=== PATIENT | female | born 1975 | race Caucasian/White ===

== ENCOUNTER 2016-10-21 10:27 | Observation (INO) ==
[2016-10-21] MEDS ORDERED: 0.9 % Sodium Chloride 1,000 ML IVC ONE (11:03)
--- NOTE | 2016-10-21 11:07 | Emergency Department Note ---
Disposition Clinical Impression: Abdominal pain Qualifiers: Abdominal location: left lower quadrant Qualified Code(s): R10.32 - Left lower quadrant pain Disposition: Admitted As Inpatient Condition: Good Referrals: NO,PCP [Non-Partnered Physician] - Forms: Work/School Release, ED Satisfaction Letter Time of Disposition: 13:56 Abdominal Pain HPI - General Chief Complaint: ED Abdominal Pain Stated Complaint: Abdominal pain Time Seen by Provider: 10/21/16 10:46 Source: patient Mode of arrival: ambulatory Limitations: no limitations Nursing Notes Reviewed: Yes Vital Signs Reviewed: Yes - History of Present Illness HPI Narrative: 40-year-old comes in complaining of left lower quadrant pain. Patient has a history of previous diverticular disease. Pt Subjective Complaint: abdominal pain Onset (ago): day(s) Consistency: constant Location: LLQ Pain Scale: 9 Quality: aching Radiation: none Migration to: no migration Improves with: nothing Worsens with: nothing - Related Data Allergies Allergy/AdvReac Type Severity Reaction Status Date / Time No Known Allergies Allergy Verified 05/26/15 12:28 Constitutional: Denies: fever, chills, weakness, weight change Eyes: Denies: eye pain, eye discharge, vision change ENT ED: Denies: ear pain, throat pain, dental pain, hearing loss, epistaxis, congestion, dysphagia Cardiovascular: Denies: chest pain, palpitations, dyspnea on exertion, edema, syncope Respiratory: Denies: cough, dyspnea, wheezes, hemoptysis, stridor Gastrointestinal: Reports: abdominal pain. Denies: nausea, vomiting, diarrhea, constipation, hematemesis, melena, hematochezia Genitourinary: Denies: dysuria, frequency, hematuria, discharge Musculoskeletal: Denies: back pain, neck pain, arthralgia, myalgia Integumentary: Denies: rash, abrasion, lesions Neurological: Denies: headache, weakness, numbness, paresthesias, confusion, abnormal gait, vertigo Psychiatric: Denies: anxiety, depression, suicidal thoughts, homicidal thoughts , auditory hallucinations, visual hallucinations Endocrine: Denies: fatigue Hematological/Lymphatic: Denies: easy bleeding, easy bruising Allergic/Immunologic: Denies: facial swelling, urticaria Abdominal Pain PMH - Past Medical History Medical history: Reports: GERD, other Psychiatric history: Reports: no psych history - Social History Smoking status: Never smoker Alcohol use: Reports: none Drug use: Reports: none Physical Exam - General Limitations: no limitations General appearance: alert, in no apparent distress - Head Head exam: atraumatic, normocephalic, normal inspection - Eye Eye exam: Present: normal appearance, PERRL, EOMI - ENT ENT exam: normal exam, normal oropharynx, mucous membranes moist - Neck Neck exam: Present: normal inspection, full ROM, trachea midline - Chest Chest inspection: Present: normal inspection, symmetric chest wall rise - Respiratory Respiratory exam: Present: normal lung sounds bilaterally - Cardiovascular Cardiovascular exam: Present: regular rate, normal rhythm, normal heart sounds - Abdominal Exam Abdominal exam: Present: tenderness. Absent: guarding, rebound Abdominal tenderness: Present: LLQ - Extremities Exam Extremities exam: Present: normal inspection, full ROM. Absent: tenderness, pedal edema - Expanded Lower Extremity Exam Neurovascular/Tendon exam: Absent: motor deficit, sensory deficit, tendon deficit Gait: observed and normal - Back Exam Back exam: Present: normal inspection, full ROM. Absent: tenderness - Neurological Exam Neurological exam: Present: alert, oriented X3 - Psychiatric Psychiatric exam: Present: normal affect, normal mood - Skin Skin exam: Present: warm, dry, intact, normal color Course - Reevaluation(s) Reevaluation #1: 40-year-old comes in stating that she has left lower quadrant pain consistent with previous episodes of diverticular disease. CT scan shows no obvious diverticulitis however on exam her examination is consistent with diverticular disease. Patient is not eating or drinking and doesn't feel she can go home. Time: 13:56 - Consultations Consultation #1: Discussed with Dr. Castro, admit. Time: 13:55 Vital Signs Temperature 97.5 F L 10/21/16 10:39 Pulse Rate 70 10/21/16 10:39 Respiratory Rate 16 10/21/16 10:39 Blood Pressure 146/100 10/21/16 10:39 O2 Sat by Pulse Oximetry 97 10/21/16 10:39 Temperature 97.5 F L 10/21/16 10:39 Pulse Rate 68 10/21/16 12:36 Respiratory Rate 16 10/21/16 12:36 Blood Pressure 117/95 10/21/16 12:36 O2 Sat by Pulse Oximetry 100 10/21/16 12:36 Oxygen Delivery Oxygen Delivery Room Air Abdominal Pain - Lab Data Lab results reviewed: Yes I reviewed the patient's lab results. Result diagrams: 10/21/16 11:16 10/21/16 11:16 Lab Results 10/21/16 10/21/16 10/21/16 Range/Units 11:00 11:16 11:16 WBC 7.0 (4.3-11.1) K/mcL RBC 3.95 (3.82-4.97) M/mcL Hgb 11.6 (11.5-15.4) g/dL Hct 34.6 L (35.3-44.9) % MCV 87.6 (83.0-100.0) fL MCH 29.4 (28.0-33.3) pg MCHC 33.5 (31.6-35.5) g/dL RDW 13.1 (11.5-14.5) % Plt Count 233 (140-400) K/mcL MPV 11.3 (9.4-12.4) fL Immature Gran % 0.3 (0-4) % Seg Neutrophils % 71.3 % Lymphocytes % 20.8 % Monocytes % 6.3 % Eosinophils % 0.7 % Basophils % 0.6 % Neutrophils # 5.0 (1.6-8.9) K/mcL Lymphocytes # 1.5 (0.6-4.6) K/mcL Monocytes # 0.4 (0.0-1.3) K/mcL Eosinophils # 0.1 (0.0-0.6) K/mcL Basophils # 0.0 (0.0-0.2) K/mcL Sodium 140 (136-145) mEq/L Potassium 4.1 (3.5-4.5) mEq/L Chloride 108 (98-109) mEq/L Carbon Dioxide 22 (19-29) mEq/L BUN 11 (7-20) mg/dL Creatinine 0.81 (0.57-1.11) mg/dL Est GFR ( Amer) > 60 (> 60) Est GFR (Non-Af Amer) > 60 (> 60) BUN/Creatinine Ratio 14 (6-26) Glucose 88 (70-99) mg/dL Calculated Osmolality 289 (280-300) Lactic Acid (0.5-2.2) mmol/L Calcium 9.1 (8.6-10.8) mg/dL Total Bilirubin 0.3 (0.2-1.2) mg/dL Direct Bilirubin 0.2 (0.0-0.5) mg/dL Indirect Bilirubin 0.1 (0.0-1.2) mg/dL AST 11 (5-34) Units/L ALT 14 (0-55) Units/L Alkaline Phosphatase 66 (38-126) Units/L Serum Total Protein 6.6 (6.0-8.3) g/dL Albumin 3.4 L (3.5-5.0) g/dL Globulin 3.2 (2.4-3.5) g/dL Albumin/Globulin Ratio 1.1 (1.1-2.2) Amylase 47 (25-125) Units/L Lipase 19 (8-78) Units/L Urine Color Yellow (Yellow) Urine Clarity Cloudy A (Clear) Urine pH 6.0 (5.0-8.0) pH Units Ur Specific [place] 1.020 (1.010-1.025) Urine Protein Negative (Neg-Trace) mg/dL Urine Glucose (UA) Normal (Normal) mg/dL Urine Ketones Negative (Negative) mg/dL Urine Blood Negative (Negative) Urine Nitrite Negative (Negative) Urine Bilirubin Negative (Negative) Urine Urobilinogen Normal (Normal) mg/dL Ur Leukocyte Esterase Negative (Negative) Urine Microscopic RBC 5-15 H (0-3) per hpf Urine Microscopic WBC 0-3 (0-3) per hpf Ur Squamous Epith Cells Many H (None-Few) per lpf Urine Bacteria Few (None-Few) per hpf Hyaline Casts None Seen (None-Few) per lpf 10/21/16 Range/Units 11:16 WBC (4.3-11.1) K/mcL RBC (3.82-4.97) M/mcL Hgb (11.5-15.4) g/dL Hct (35.3-44.9) % MCV (83.0-100.0) fL MCH (28.0-33.3) pg MCHC (31.6-35.5) g/dL RDW (11.5-14.5) % Plt Count (140-400) K/mcL MPV (9.4-12.4) fL Immature Gran % (0-4) % Seg Neutrophils % % Lymphocytes % % Monocytes % % Eosinophils % % Basophils % % Neutrophils # (1.6-8.9) K/mcL Lymphocytes # (0.6-4.6) K/mcL Monocytes # (0.0-1.3) K/mcL Eosinophils # (0.0-0.6) K/mcL Basophils # (0.0-0.2) K/mcL Sodium (136-145) mEq/L Potassium (3.5-4.5) mEq/L Chloride (98-109) mEq/L Carbon Dioxide (19-29) mEq/L BUN (7-20) mg/dL Creatinine (0.57-1.11) mg/dL Est GFR ( Amer) (> 60) Est GFR (Non-Af Amer) (> 60) BUN/Creatinine Ratio (6-26) Glucose (70-99) mg/dL Calculated Osmolality (280-300) Lactic Acid 1.8 (0.5-2.2) mmol/L Calcium (8.6-10.8) mg/dL Total Bilirubin (0.2-1.2) mg/dL Direct Bilirubin (0.0-0.5) mg/dL Indirect Bilirubin (0.0-1.2) mg/dL AST (5-34) Units/L ALT (0-55) Units/L Alkaline Phosphatase (38-126) Units/L Serum Total Protein (6.0-8.3) g/dL Albumin (3.5-5.0) g/dL Globulin (2.4-3.5) g/dL Albumin/Globulin Ratio (1.1-2.2) Amylase (25-125) Units/L Lipase (8-78) Units/L Urine Color (Yellow) Urine Clarity (Clear) Urine pH (5.0-8.0) pH Units Ur Specific [place] (1.010-1.025) Urine Protein (Neg-Trace) mg/dL Urine Glucose (UA) (Normal) mg/dL Urine Ketones (Negative) mg/dL Urine Blood (Negative) Urine Nitrite (Negative) Urine Bilirubin (Negative) Urine Urobilinogen (Normal) mg/dL Ur Leukocyte Esterase (Negative) Urine Microscopic RBC (0-3) per hpf Urine Microscopic WBC (0-3) per hpf Ur Squamous Epith Cells (None-Few) per lpf Urine Bacteria (None-Few) per hpf Hyaline Casts (None-Few) per lpf - Radiology Data Radiology results reviewed: Yes I reviewed the patient's radiology results. Abdomen/Pelvis CT 10/21/16 11:04 IMPRESSION: 1. No acute abnormalities are seen in the abdomen or pelvis 2. Status postcholecystectomy 3. Tiny nonobstructing bilateral renal calculi 4. Colonic diverticulosis without evidence for diverticulitis 5. Normal appearing appendix 6. Small sliding hiatal hernia D/ / Jovani Hanna MD / Jovani Hanna MD Interpreting Provider: Jovani Hanna MD
[2016-10-21 11:10] LABS: Bilirubin,Urine Negative (Negative); Blood,Urine Negative (Negative); Clarity,Urine Cloudy (Clear); Color,Urine Yellow (Yellow); Glucose,Urine (UA) Normal (Normal); Ketones,Urine Negative (Negative); Leukocyte Esterase,Urine Negative (Negative); Nitrite,Urine Negative (Negative); Protein,Urine Negative (Neg-Trace); Urobilinogen,Urine Normal (Normal)
[2016-10-21 11:13] LABS: Bacteria,Urine Few per hpf (None-Few); Hyaline Casts,Urine None Seen per lpf (None-Few); Squamous Epithelial Cell,Urine Many per lpf (None-Few); WBC,Urine 0-3 per hpf (0-3)
[2016-10-21] MEDS ORDERED: Ondansetron 4 MG/2 ML VIAL IVP ONE ×2 (11:17→13:52)
[2016-10-21] MEDS ORDERED: *HR* HYDROmorphone (PF) 1 MG/ML SYRINGE IVP ONE ×2 (11:17→12:28)
[2016-10-21 11:25] LABS: Basophils % 0.6 %; Eosinophils # 0.1 K/mcL (0.0-0.6); Eosinophils % 0.7 %; Hematocrit 34.6 % (35.3-44.9); Hemoglobin 11.6 g/dL (11.5-15.4); Immature Granulocytes % 0.3 % (0-4); Lymphocytes # 1.5 K/mcL (0.6-4.6); Lymphocytes % 20.8 %; Mean Corpuscular HGB Conc 33.5 g/dL (31.6-35.5); Mean Corpuscular Hemoglobin 29.4 pg (28.0-33.3); Mean Corpuscular Volume 87.6 fL (83.0-100.0); Mean Platelet Volume 11.3 fL (9.4-12.4); Monocytes # 0.4 K/mcL (0.0-1.3); Monocytes % 6.3 %; Platelet Count 233 K/mcL (140-400); Red Blood Count 3.95 M/mcL (3.82-4.97); Red Cell Distribution Width 13.1 % (11.5-14.5); Segmented Neutrophils % 71.3 %
[2016-10-21 11:40] LABS: Alanine Aminotransferase 14 Units/L (0-55); Albumin 3.4 g/dL (3.5-5.0); Albumin/Globulin Ratio 1.1 (1.1-2.2); Alkaline Phosphatase 66 Units/L (38-126); Amylase 47 Units/L (25-125); Aspartate Amino Transferase 11 Units/L (5-34); BUN/Creatinine Ratio 14 (6-26); Bilirubin,Direct 0.2 mg/dL (0.0-0.5); Bilirubin,Indirect 0.1 mg/dL (0.0-1.2); Bilirubin,Total 0.3 mg/dL (0.2-1.2); Blood Urea Nitrogen 11 mg/dL (7-20); Calcium 9.1 mg/dL (8.6-10.8); Carbon Dioxide 22 mEq/L (19-29); Chloride 108 mEq/L (98-109); Globulin 3.2 g/dL (2.4-3.5); Glucose 88 mg/dL (70-99); Lipase 19 Units/L (8-78); Osmolality,Calculated 289 (280-300); Potassium 4.1 mEq/L (3.5-4.5); Sodium 140 mEq/L (136-145); Total Protein 6.6 g/dL (6.0-8.3); eGFR For African Americans > 60 (> 60); eGFR For Non-African Americans > 60 (> 60)
[2016-10-21] MEDS ORDERED: MetroNIDAZOLE 500 MG/100 ML 500 MG/100 ML BAG IVPB ONE (13:57)
[2016-10-21] MEDS: 0.9 % Sodium Chloride 1,000 ML IVC SCH ×2 (14:03→21:24)
--- NOTE | 2016-10-21 15:04 | Internal Med History&Physical ---
"Date of Encounter: 10/21/16 Time of Encounter: 15:01 Assessment and Plan (1) Abdominal pain Current visit: Yes Status: Acute Suspected this is caused by enteritis. No evidence of diverticulitis on CT scan of the abdomen and pelvis although classical forearm IV contrast is a limitation. But also on my clinical exam she does not have any notable tenderness in the left lower quadrant. She is afebrile without leukocytosis. Urinalysis is not suggestive of infection. I will start symptomatic treatment for pain and nausea. I would hold off antibiotic therapy. Heparin and famotidine for DVT and PUD prophylaxis respectively. Observation admission. Expected discharge in a.m. if all well Qualifiers: Abdominal location: left lower quadrant Qualified Code(s): R10.32 - Left lower quadrant pain Internal Medicine - H&P: HPI Chief complaint: abdominal pain History of present illness: Ms. Haines is a 40 year old female with a past medical history of Gerd, prior episode of diverticulitis presents an emergency room today with the main complaint of abdominal pain. For the past 2 days patient has been experiencing crampy left lower quadrant abdominal pain associated with nausea. Occasional loose stools after period of constipation. No reported fever but she mentions that she had some chills. She was traveling to [place] and has just came back. No blood in the stool. She denies any urine problems the formal emergency frequency incontinence foul-smelling urine or blood urine. She had a prior hysterectomy for endometriosis. A noon contrasted CT scan of the abdomen and pelvis performed an emergency room was unremarkable for any evidence of diverticulitis. Patient appears somewhat tearful during my interview with poor eye contact. She denies any extraordinary stress Past Med Surg Social Fam HX - Past Medical History Medical history: GERD, other Psychiatric history: no psych history - Past Surgical History Surgical History: hysterectomy - Social History Smoking Status: Never smoker Smokeless Tobacco Status: No Alcohol use: none Drug use: none Internal Medicine - H&P: Meds Alprazolam [Xanax] 2 mg PO QID PRN 10/21/16 [History] Buspirone HCl [Buspar] 10 mg PO BID 10/21/16 [History] Estradiol [Estradiol] 2 mg PO DAILY 10/21/16 [History] Ibuprofen [Ibuprofen] 800 mg PO TID PRN 10/21/16 [History] Propranolol LA (24 HR) [Inderal LA] 60 mg PO DAILY 10/21/16 [History] Allergies Influenza Virus Vaccines Allergy (Verified 10/21/16 14:04) Swelling of Lip/Tongue/Throat All Systems PM: A 10-system review of systems was performed and is negative for pertinent findings except as documented above in the HPI. Review of systems: 10 point ROS is negative except for HPI - Constitutional Vitals: Temp Pulse Resp BP Pulse Ox 97.5 F L 62 16 130/85 99 10/21/16 10:39 10/21/16 14:09 10/21/16 14:12 10/21/16 14:12 10/21/16 14:09 Exam: Gen.: patient is alerts oriented times 3 not distress. Cardio: normal S1 S2 no additional sounds were murmurs. Chest: clearance auscultation bilaterally abdomen: no significant tenderness in the left lower quadrant to deep palpation no rebound tenderness | rigidity bowel sounds are present head: no cyanosis no focal deficits Internal Med - H&P Results - Labs CBC & Chem 7: 10/21/16 11:16 10/21/16 11:16"
[2016-10-21] MEDS ORDERED: ALPRAZolam 1 MG TABLET PO PRN (15:09)
[2016-10-21] MEDS: *HR* Morphine 2 MG/ML SYRINGE IVP PRN ×2 (16:44→21:23)
[2016-10-21] MEDS: Ondansetron 4 MG/2 ML VIAL IVP PRN ×2 (16:45→22:53)
[2016-10-21] MEDS: *HR* Heparin 5,000 UNIT/ML VIAL SQ SCH (21:24)
[2016-10-22] MEDS: *HR* Morphine 2 MG/ML SYRINGE IVP PRN ×5 (01:24→19:50)
[2016-10-22] MEDS: *HR* Heparin 5,000 UNIT/ML VIAL SQ SCH ×3 (05:35→22:32)
[2016-10-22] MEDS: Ondansetron 4 MG/2 ML VIAL IVP PRN ×3 (05:36→19:50)
[2016-10-22 06:14] LABS: Basophils % 0.5 %; Eosinophils # 0.1 K/mcL (0.0-0.6); Eosinophils % 1.3 %; Hematocrit 31.5 % (35.3-44.9); Hemoglobin 10.5 g/dL (11.5-15.4); Immature Granulocytes % 0.3 % (0-4); Lymphocytes # 1.9 K/mcL (0.6-4.6); Lymphocytes % 32.2 %; Mean Corpuscular HGB Conc 33.3 g/dL (31.6-35.5); Mean Corpuscular Hemoglobin 29.4 pg (28.0-33.3); Mean Corpuscular Volume 88.2 fL (83.0-100.0); Mean Platelet Volume 11.2 fL (9.4-12.4); Monocytes # 0.4 K/mcL (0.0-1.3); Neutrophils # 3.5 K/mcL (1.6-8.9); Platelet Count 205 K/mcL (140-400); Red Blood Count 3.57 M/mcL (3.82-4.97); Segmented Neutrophils % 58.7 %
[2016-10-22 06:31] LABS: Alanine Aminotransferase 12 Units/L (0-55); Albumin 3.1 g/dL (3.5-5.0); Albumin/Globulin Ratio 1.1 (1.1-2.2); Alkaline Phosphatase 56 Units/L (38-126); Aspartate Amino Transferase 11 Units/L (5-34); BUN/Creatinine Ratio 8 (6-26); Bilirubin,Total 0.2 mg/dL (0.2-1.2); Blood Urea Nitrogen 6 mg/dL (7-20); Calcium 8.2 mg/dL (8.6-10.8); Carbon Dioxide 24 mEq/L (19-29); Chloride 108 mEq/L (98-109); Globulin 2.8 g/dL (2.4-3.5); Glucose 77 mg/dL (70-99); Lipase 10 Units/L (8-78); Magnesium 1.6 mg/dL (1.6-2.6); Osmolality,Calculated 284 (280-300); Potassium 3.6 mEq/L (3.5-4.5); Sodium 139 mEq/L (136-145); Total Protein 5.9 g/dL (6.0-8.3); eGFR For African Americans > 60 (> 60); eGFR For Non-African Americans > 60 (> 60)
[2016-10-22] MEDS: Famotidine 20 MG/2 ML VIAL IVP SCH (07:51)
[2016-10-22] MEDS: 0.9 % Sodium Chloride 1,000 ML IVC SCH ×2 (07:55→16:00)
--- NOTE | 2016-10-22 10:08 | Internal Med Progress Note ---
Date of Encounter: 10/21/16 Time of Encounter: 09:00 - Assessment and plan (1) Abdominal pain Current Visit: Yes Status: Acute Assessment and plan: Likely enteritis Improving however still not able to tolerate PO intake well Will continue IV fluids Pain control Zofran prn clear liquid diet, will advance as tolerated Likely d/c in am if clinically improves Qualifiers: Abdominal location: left lower quadrant Qualified Code(s): R10.32 - Left lower quadrant pain (2) GERD (gastroesophageal reflux disease) Current Visit: Yes Status: Chronic Assessment and plan: continue home medications Qualifiers: Esophagitis presence: esophagitis presence not specified Qualified Code(s) : K21.9 - Gastro-esophageal reflux disease without esophagitis (3) DVT prophylaxis Current Visit: Yes Status: Acute Assessment and plan: Heparin SQ (4) Morbid obesity Current Visit: Yes Status: Chronic Qualifiers: Obesity type: unspecified obesity type Qualified Code(s): E66.01 - Morbid ( severe) obesity due to excess calories - Subjective Interval history: Patient seen and examined at bedside. States she feels slightly better compared to previous day but continues to have abdominal pain. States the abdominal pain is now generalized and is intermittent in nature. Describes it as stabbing sharp pain. Reports of associated nausea but no vomiting. States she is still not able to tolerate any PO intake. Reports of not able to eat any of her clear liquid diet this morning as it worsened her nausea. Of note patient has history of delayed gastric emptying as per med records from May 2015. - Constitutional Vitals: Temp Pulse Resp BP Pulse Ox 97.6 F 65 17 123/78 97 10/22/16 07:17 10/22/16 07:17 10/22/16 07:17 10/22/16 07:17 10/22/16 07:17 General appearance: Present: A&O X 3, morbidly obese, no acute distress - Head Head exam: Present: atraumatic, normocephalic - Eye Eye exam: Present: normal appearance, conjuntiva pink, sclera anicteric - Respiratory Respiratory exam: Present: CTAB. Absent: accessory muscle use, rales, rhonchi, wheezes - Cardiovascular Cardiovascular exam: Present: RRR, +S1, +S2. Absent: diastolic murmur, gallop, rubs, systolic murmur - GI/Abdominal GI/Abdominal exam: Present: normal bowel sounds, soft, no peritoneal signs. Absent: guarding, rebound, tenderness - Extremities Exam Extremities exam: Present: warm, radial pulses palpable and symetrical. Absent : calf tenderness, cyanotic, pedal edema - Neurological Exam Neurological exam: Present: alert, oriented X3 - Psychiatric Psychiatric exam: Present: normal affect, normal mood Internal Medicine: Result - Labs CBC & Chem 7: 10/22/16 05:35 10/22/16 05:35 Labs: Short CBC 10/22/16 Range/Units 05:35 WBC 6.0 (4.3-11.1) K/mcL Hgb 10.5 L (11.5-15.4) g/dL Hct 31.5 L (35.3-44.9) % Plt Count 205 (140-400) K/mcL Neutrophils # 3.5 (1.6-8.9) K/mcL BMP 10/22/16 05:35 Sodium 139 Potassium 3.6 Chloride 108 Carbon Dioxide 24 BUN 6 L Creatinine 0.77 Glucose 77 Calcium 8.2 L Liver Function 10/22/16 Range/Units 05:35 Total Bilirubin 0.2 (0.2-1.2) mg/dL AST 11 (5-34) Units/L ALT 12 (0-55) Units/L Alkaline Phosphatase 56 (38-126) Units/L Albumin 3.1 L (3.5-5.0) g/dL Consult Discharge Plan - Plan Referrals: Larissa Allen MD [Primary Care Provider] - 10/29/16 8:15 am
[2016-10-22] MEDS ORDERED: *HR* Morphine 2 MG/ML SYRINGE IVP STA (22:13)
[2016-10-22] MEDS ORDERED: *HR* Morphine 2 MG/ML SYRINGE ONE (22:28)
[2016-10-23] MEDS ORDERED: Ketorolac 30 MG/ML VIAL IVP PRN (01:00)
[2016-10-23] MEDS: 0.9 % Sodium Chloride 1,000 ML IVC SCH ×4 (02:55→12:42)
[2016-10-23] MEDS: Ondansetron 4 MG/2 ML VIAL IVP PRN ×2 (02:56→09:32)
[2016-10-23] MEDS: *HR* Morphine 2 MG/ML SYRINGE IVP PRN ×3 (02:56→11:41)
[2016-10-23 04:52] LABS: Basophils % 0.5 %; Eosinophils # 0.1 K/mcL (0.0-0.6); Eosinophils % 1.7 %; Hematocrit 31.7 % (35.3-44.9); Hemoglobin 10.7 g/dL (11.5-15.4); Immature Granulocytes % 0.3 % (0-4); Lymphocytes # 1.8 K/mcL (0.6-4.6); Lymphocytes % 30.1 %; Mean Corpuscular HGB Conc 33.8 g/dL (31.6-35.5); Mean Corpuscular Hemoglobin 29.8 pg (28.0-33.3); Mean Corpuscular Volume 88.3 fL (83.0-100.0); Mean Platelet Volume 12.2 fL (9.4-12.4); Monocytes # 0.4 K/mcL (0.0-1.3); Monocytes % 6.8 %; Neutrophils # 3.6 K/mcL (1.6-8.9); Platelet Count 153 K/mcL (140-400); Red Blood Count 3.59 M/mcL (3.82-4.97); Red Cell Distribution Width 12.9 % (11.5-14.5); Segmented Neutrophils % 60.6 %
[2016-10-23 05:20] LABS: BUN/Creatinine Ratio 6 (6-26); Calcium 8.2 mg/dL (8.6-10.8); Carbon Dioxide 18 mEq/L (19-29); Chloride 108 mEq/L (98-109); Glucose 78 mg/dL (70-99); Magnesium 1.7 mg/dL (1.6-2.6); Osmolality,Calculated 280 (280-300); Phosphorous 2.8 mg/dL (2.3-4.7); Potassium 3.3 mEq/L (3.5-4.5); Sodium 137 mEq/L (136-145); eGFR For African Americans > 60 (> 60); eGFR For Non-African Americans > 60 (> 60)
[2016-10-23 05:43] LABS: Blood Urea Nitrogen 4 mg/dL (7-20)
[2016-10-23] MEDS: *HR* Heparin 5,000 UNIT/ML VIAL SQ SCH ×3 (06:04→21:29)
[2016-10-23] MEDS: Famotidine 20 MG/2 ML VIAL IVP SCH (09:18)
[2016-10-23] MEDS: Pantoprazole 40 MG VIAL IVP SCH (09:18)
[2016-10-23] MEDS ORDERED: *HR* Morphine 2 MG/ML SYRINGE IVP PRN (12:27)
--- NOTE | 2016-10-23 12:31 | Internal Med Progress Note ---
Date of Encounter: 10/23/16 Time of Encounter: 12:29 - Assessment and plan (1) Abdominal pain Current Visit: Yes Status: Acute Assessment and plan: Likely enteritis Improving however still not able to tolerate PO intake well Will continue IV fluids Pain control(changed morphine to q4h and added percocet q6h for moderate pain) Zofran prn clear liquid diet, will advance as tolerated Likely d/c in am if clinically improves Qualifiers: Abdominal location: left lower quadrant Qualified Code(s): R10.32 - Left lower quadrant pain (2) GERD (gastroesophageal reflux disease) Current Visit: Yes Status: Chronic Assessment and plan: continue home medications Qualifiers: Esophagitis presence: esophagitis presence not specified Qualified Code(s) : K21.9 - Gastro-esophageal reflux disease without esophagitis (3) DVT prophylaxis Current Visit: Yes Status: Acute Assessment and plan: Heparin SQ (4) Morbid obesity Current Visit: Yes Status: Chronic Qualifiers: Obesity type: unspecified obesity type Qualified Code(s): E66.01 - Morbid ( severe) obesity due to excess calories (5) Metabolic acidosis Current Visit: Yes Status: Acute Assessment and plan: normal anion gap metabolic acidosis likely secondary to IV fluids will decrease IV fluid rate and patient encouraged to increase PO intake will continue to monitor - Subjective Interval history: Patient seen and examined at bedside. Pt reports of severe nausea this morning and is unable to tolerate any diet. She states she is trying to eat but has been severely nauseous this morning. Also reports of worsening diffuse abd pain that comes and goes. No pain reported at this time. As per nursing staff, patient has been frequently demanding her pain medications. Pt exhibits drug seeking behaviors and gets agitated when confronted by her use of morphine. Patient educated about the risks associated with narcotic medications. She demonstrates understanding at this time. - Constitutional Vitals: Temp Pulse Resp BP Pulse Ox 97.8 F 72 16 138/89 96 10/23/16 07:27 10/23/16 07:27 10/23/16 07:27 10/23/16 07:27 10/23/16 07:27 General appearance: Present: A&O X 3, morbidly obese, no acute distress - Head Head exam: Present: atraumatic, normocephalic - Eye Eye exam: Present: PERRL, conjuntiva pink, sclera anicteric - Respiratory Respiratory exam: Present: CTAB. Absent: accessory muscle use, rales, rhonchi, wheezes - Cardiovascular Cardiovascular exam: Present: RRR, +S1, +S2. Absent: diastolic murmur, gallop, rubs, systolic murmur - GI/Abdominal GI/Abdominal exam: Present: normal bowel sounds, soft, no peritoneal signs. Absent: distended, tenderness - Extremities Exam Extremities exam: Present: warm, radial pulses palpable and symetrical. Absent : calf tenderness, cyanotic, pedal edema - Neurological Exam Neurological exam: Present: alert, oriented X3 - Psychiatric Psychiatric exam: Present: normal affect, normal mood Internal Medicine: Result - Labs CBC & Chem 7: 10/23/16 04:08 10/23/16 04:08 Labs: Short CBC 10/23/16 Range/Units 04:08 WBC 6.0 (4.3-11.1) K/mcL Hgb 10.7 L (11.5-15.4) g/dL Hct 31.7 L (35.3-44.9) % Plt Count 153 (140-400) K/mcL Neutrophils # 3.6 (1.6-8.9) K/mcL BMP 10/23/16 04:08 Sodium 137 Potassium 3.3 L Chloride 108 Carbon Dioxide 18 L BUN 4 L Creatinine 0.69 Glucose 78 Calcium 8.2 L Consult Discharge Plan - Plan Referrals: Larissa Allen MD [Primary Care Provider] - 10/29/16 8:15 am
[2016-10-23] MEDS: *HR* Promethazine 25 MG/ML VIAL IVP PRN ×2 (12:40→21:30)
[2016-10-23] MEDS: *HR* OxyCODONE/APAP 5/325 TABLET PO PRN ×2 (12:42→19:17)
[2016-10-24] MEDS: 0.9 % Sodium Chloride 1,000 ML IVC SCH (00:32)
[2016-10-24] MEDS: *HR* OxyCODONE/APAP 5/325 TABLET PO PRN ×2 (01:38→08:30)
[2016-10-24] MEDS: *HR* Promethazine 25 MG/ML VIAL IVP PRN (04:59)
[2016-10-24] MEDS: *HR* Heparin 5,000 UNIT/ML VIAL SQ SCH (05:00)
[2016-10-24 05:33] LABS: Basophils % 0.5 %; Eosinophils # 0.1 K/mcL (0.0-0.6); Eosinophils % 1.6 %; Hematocrit 30.9 % (35.3-44.9); Hemoglobin 10.4 g/dL (11.5-15.4); Immature Granulocytes % 0.2 % (0-4); Lymphocytes # 1.8 K/mcL (0.6-4.6); Lymphocytes % 28.9 %; Mean Corpuscular HGB Conc 33.7 g/dL (31.6-35.5); Mean Corpuscular Hemoglobin 29.2 pg (28.0-33.3); Mean Corpuscular Volume 86.8 fL (83.0-100.0); Mean Platelet Volume 11.5 fL (9.4-12.4); Monocytes # 0.5 K/mcL (0.0-1.3); Monocytes % 7.7 %; Neutrophils # 3.8 K/mcL (1.6-8.9); Platelet Count 208 K/mcL (140-400); Red Blood Count 3.56 M/mcL (3.82-4.97); Red Cell Distribution Width 13.2 % (11.5-14.5); Segmented Neutrophils % 61.1 %
[2016-10-24 05:35] LABS: BUN/Creatinine Ratio 10 (6-26); Blood Urea Nitrogen 8 mg/dL (7-20); Calcium 9.1 mg/dL (8.6-10.8); Carbon Dioxide 23 mEq/L (19-29); Chloride 109 mEq/L (98-109); Glucose 99 mg/dL (70-99); Magnesium 1.8 mg/dL (1.6-2.6); Osmolality,Calculated 290 (280-300); Phosphorous 3.6 mg/dL (2.3-4.7); Potassium 3.7 mEq/L (3.5-4.5); Sodium 141 mEq/L (136-145); eGFR For African Americans > 60 (> 60); eGFR For Non-African Americans > 60 (> 60)
[2016-10-24 07:45] VITALS: BP 134/86
[2016-10-24] MEDS: Pantoprazole 40 MG VIAL IVP SCH (08:33)
--- NOTE | 2016-10-24 08:40 | Discharge Summary ---
Date of Encounter: 10/24/16 Time of Encounter: 08:35 - Discharge Diagnosis (1) Abdominal pain Priority: Primary Status: Acute Qualifiers: Abdominal location: left lower quadrant Qualified Code(s): R10.32 - Left lower quadrant pain (2) GERD (gastroesophageal reflux disease) Priority: Secondary Status: Chronic Qualifiers: Esophagitis presence: esophagitis presence not specified Qualified Code(s) : K21.9 - Gastro-esophageal reflux disease without esophagitis (3) DVT prophylaxis Priority: Secondary Status: Acute (4) Morbid obesity Priority: Secondary Status: Chronic Qualifiers: Obesity type: unspecified obesity type Qualified Code(s): E66.01 - Morbid ( severe) obesity due to excess calories (5) Metabolic acidosis Priority: Secondary Status: Resolved - Discharge Medications Prescriptions: OxyCODONE/APAP 5/325 [Percocet 5/325 MG] 1 each PO Q6HR PRN #15 tablet PRN Reason: Moderate Pain Ondansetron ODT [Zofran ODT] 4 mg PO Q6H PRN #10 tab.rapdis PRN Reason: nausea/vomiting Sennosides/Docusate Sodium [Senna Plus] 2 each PO BID PRN #20 tablet PRN Reason: Constipation Home Medications: Alprazolam [Xanax] 2 mg PO QID PRN 10/21/16 [History] Buspirone HCl [Buspar] 10 mg PO BID 10/21/16 [History] Estradiol 2 mg PO DAILY 10/21/16 [History] Ibuprofen 800 mg PO TID PRN 10/21/16 [History] Propranolol LA (24 HR) [Inderal LA] 60 mg PO DAILY 10/21/16 [History] Ondansetron ODT [Zofran ODT] 4 mg PO Q6H PRN #10 tab.rapdis 10/24/16 [Rx] OxyCODONE/APAP 5/325 [Percocet 5/325 MG] 1 each PO Q6HR PRN #15 tablet 10/24/16 [Rx] Sennosides/Docusate Sodium [Senna Plus] 2 each PO BID PRN #20 tablet 10/24/16 [ Rx] Allergies/Adverse Reactions: Allergies Influenza Virus Vaccines Allergy (Verified 10/21/16 14:04) Swelling of Lip/Tongue/Throat Date of admission: 10/21/16 14:10 Primary care physician: Larissa Oconnell Discharging clinician: Inez Thornton Anticipated date of discharge: 10/24/16 - Patient Status Disposition: Home, Self-Care Condition: Good Functional capacity at discharge: independent ambulation Overall status at discharge: patient is back to baseline - Discharge Instructions Follow Up With: Larissa Allen MD [Primary Care Provider] - 10/29/16 8:15 am Additional Instructions: Please follow up with your primary care physician within one week after your discharge from the hospital. Please advance your diet as tolerated. Please resume all your home medications as prescribed by your primary care physician. - Diet and Activity Activity: resume usual activities as tolerated Diet: advance to your usual diet Hospital course: Ms. Haines is a 40 year old female with PMH of GERD, morbid obesity, prior history of diverticulitis who was admitted for management of abdominal pain, nausea, vomiting and unable to take PO intake. Patient's imaging studies were negative for any acute diverticulitis or any other infectious etiology, she was further admitted for symptomatic management. She was started on IV fluids, pain management, and clear liquid diet. Patient's symptoms improved with supportive care and at this time she is tolerating PO intake well with resolution of her presenting symptoms. Reports of mild abd discomfort which is significantly better since admission. At this time, she is hemodynamically stable and pain free. She is tolerating PO intake well with advancement in her diet and will be discharged to home with follow up with her PCP. Patient demonstrates understanding of her diagnosis and agrees with the discharge care and plan. - Time Spent with Patient Total time spent providing and/or coordinating discharge services: Less than 30 minutes - Constitutional Vitals: Temp Pulse Resp BP Pulse Ox 97.9 F 68 16 134/86 96 10/24/16 07:44 10/24/16 07:44 10/24/16 07:44 10/24/16 07:44 10/24/16 07:44 General appearance: Present: A&O X 3, morbidly obese, no acute distress - Head Head exam: Present: atraumatic, normocephalic - Eye Eye exam: Present: normal appearance, conjuntiva pink, sclera anicteric - Respiratory Respiratory exam: Present: CTAB. Absent: accessory muscle use, rales, rhonchi, wheezes - Cardiovascular Cardiovascular exam: Present: RRR, +S1, +S2. Absent: diastolic murmur, gallop, rubs, systolic murmur - GI/Abdominal GI/Abdominal exam: Present: normal bowel sounds, soft, no peritoneal signs. Absent: distended, tenderness - Extremities Exam Extremities exam: Present: warm, radial pulses palpable and symetrical. Absent : calf tenderness, cyanotic, pedal edema - Neurological Exam Neurological exam: Present: alert, oriented X3 - Psychiatric Psychiatric exam: Present: normal affect, normal mood
== END 2016-10-24 10:15 | disposition home or self-care (01) ==
LOC: EMEROO 10:27 → 3BNU 10:27 → SUATTDRO 14:10 → 3BNU 14:32
PROVIDERS: ADMIT Hospitalist; ATTEND Internal Medicine

== ENCOUNTER 2019-09-26 15:11 | Observation (INO) ==
[2019-09-26] MEDS ORDERED: *HR* Belladonna Alkaloids/Opium 30 MG RECTAL SUPPOSITORY RC PRN (15:29)
[2019-09-26] MEDS ORDERED: Naloxone 0.4 MG/ML INJ IVP PRN (15:29)
[2019-09-26] MEDS ORDERED: Hyoscyamine SL 0.125 MG TAB.SUBL SL PRN (15:29)
[2019-09-26] MEDS ORDERED: Ondansetron 4 MG/2 ML VIAL IVP PRN (15:29)
[2019-09-26 16:38] LABS: Basophils % 0.6 %; Eosinophils # 0.2 K/mcL (0.0-0.6); Eosinophils % 3.9 %; Hematocrit 39.5 % (35.3-44.9); Hemoglobin 13.1 g/dL (11.5-15.4); Immature Granulocytes % 0.2 % (0-4); Lymphocytes # 1.3 K/mcL (0.6-4.6); Lymphocytes % 25.2 %; Mean Corpuscular HGB Conc 33.2 g/dL (31.6-35.5); Mean Corpuscular Hemoglobin 29.6 pg (28.0-33.3); Mean Corpuscular Volume 89.2 fL (83.0-100.0); Mean Platelet Volume 10.4 fL (9.4-12.4); Monocytes # 0.6 K/mcL (0.0-1.3); Monocytes % 11.6 %; Platelet Count 306 K/mcL (140-400); Red Blood Count 4.43 M/mcL (3.82-4.97); Red Cell Distribution Width 13.5 % (11.5-14.5); Segmented Neutrophils % 58.5 %; White Blood Count 5.1 K/mcL (4.3-11.1)
[2019-09-26 17:05] LABS: BUN/Creatinine Ratio 14 (6-26); Blood Urea Nitrogen 11 mg/dL (6-20); Carbon Dioxide 18 mEq/L (23-29); Chloride 105 mEq/L (98-107); Glucose 86 mg/dL (70-105); Osmolality,Calculated 277 (280-300); Potassium 4.1 mEq/L (3.5-5.1); Sodium 134 mEq/L (136-145); eGFR For African Americans > 60 (> 60); eGFR For Non-African Americans > 60 (> 60)
[2019-09-26] MEDS: levoFLOXacin 500 MG TABLET PO SCH (17:19)
[2019-09-26] MEDS: 0.9 % Sodium Chloride 1,000 ML IVC SCH (17:19)
[2019-09-26] MEDS: Ketorolac 15 MG/ML VIAL IVP PRN (23:59)
[2019-09-27] MEDS: *HR* Promethazine 25 MG/ML VIAL IVP PRN ×2 (01:30→10:05)
[2019-09-27] MEDS: 0.9 % Sodium Chloride 1,000 ML IVC SCH ×2 (03:45→12:22)
[2019-09-27] MEDS: *HR* HYDROcodone/Acet 5/325 mg TABLET PO PRN ×3 (03:47→13:21)
[2019-09-27] MEDS: levoFLOXacin 500 MG TABLET PO SCH (08:47)
[2019-09-27] MEDS ORDERED: estradioL 1 MG TABLET PO SCH (09:45)
[2019-09-27] MEDS: Ketorolac 15 MG/ML VIAL IVP PRN (12:22)
[2019-09-27] MEDS ORDERED: *HR* OxyCODONE Immed Rel 5 MG TABLET PO PRN (18:42)
[2019-09-27] MEDS ORDERED: Ondansetron 4 MG/2 ML VIAL IVP ONE (18:42)
[2019-09-27] MEDS ORDERED: *HR* Meperidine 25 MG/ML SYRINGE IVP PRN (18:42)
[2019-09-27] MEDS ORDERED: *HR* Promethazine 25 MG/ML VIAL IVP PRN (18:42)
[2019-09-27] MEDS ORDERED: *HR* HYDROmorphone PF 0.5 MG/0.5 ML SYRINGE IVP PRN (18:42)
[2019-09-27] MEDS ORDERED: *HR* Propofol 200 MG/20 ML VIAL IVP ONE (18:53)
[2019-09-27] MEDS ORDERED: *HR* FentaNYL (PF) 100 MCG/2 ML VIAL ONE (18:53)
[2019-09-27] MEDS ORDERED: *HR* Midazolam HCl 2 MG/2 ML VIAL ONE (18:53)
[2019-09-27] MEDS ORDERED: Lidocaine -MPF 2% 2 ML VIAL ONE (19:10)
[2019-09-27] MEDS ORDERED: Dexamethasone 4 MG/ML VIAL ONE (19:10)
[2019-09-27] MEDS ORDERED: Ondansetron 4 MG/2 ML VIAL IVP PRN (19:45)
[2019-09-27] MEDS ORDERED: Ketorolac 15 MG/ML VIAL IVP PRN (19:45)
[2019-09-27] MEDS ORDERED: Hyoscyamine SL 0.125 MG TAB.SUBL SL PRN (19:45)
[2019-09-27] MEDS ORDERED: *HR* HYDROcodone/Acet 5/325 mg TABLET PO PRN (19:45)
[2019-09-27] MEDS ORDERED: Naloxone 0.4 MG/ML INJ IVP PRN (19:45)
[2019-09-27] MEDS ORDERED: *HR* Belladonna Alkaloids/Opium 30 MG RECTAL SUPPOSITORY RC PRN (19:45)
[2019-09-27] MEDS ORDERED: 0.9 % Sodium Chloride 1,000 ML IVC SCH (19:45)
[2019-09-27 19:54] VITALS: BP 103/81
[2019-09-28] MEDS ORDERED: levoFLOXacin 500 MG TABLET PO SCH (09:00)
[2019-09-28] MEDS ORDERED: estradioL 1 MG TABLET PO SCH (09:00)
[2019-10-04 18:17] LABS: Calculi Mass 7 mg
== END 2019-09-27 21:44 | disposition home or self-care (01) ==
LOC: 3ANU
PROVIDERS: ADMIT Urology; ATTEND Urology

== ENCOUNTER 2021-08-05 09:23 | Observation (INO) ==
[2021-08-05] MEDS ORDERED: 0.9 % Sodium Chloride 1,000 ML IVC ONE (10:06)
[2021-08-05] MEDS ORDERED: Isovue-370 500 ML BOTTLE IVP ONE (10:06)
[2021-08-05] MEDS ORDERED: Ondansetron 4 MG/2 ML VIAL IVP ONE (10:06)
[2021-08-05 10:42] LABS: Hematocrit 31.5 % (35.3-44.9); Hemoglobin 10.5 g/dL (11.5-15.4); Mean Corpuscular HGB Conc 33.3 g/dL (31.6-35.5); Mean Platelet Volume 10.8 fL (9.4-12.4); Platelet Count 194 K/mcL (140-400); Red Cell Distribution Width 13.2 % (11.5-14.5); White Blood Count 5.5 K/mcL (4.3-11.1)
[2021-08-05 10:50] LABS: Prothrombin Time 11.1 Seconds (9.4-12.1)
[2021-08-05 10:53] LABS: Activated Partial Thrombo Time 30.6 Seconds (26.0-36.0)
[2021-08-05] MEDS ORDERED: Acetaminophen 325 MG TABLET PO ONE (11:07)
[2021-08-05] MEDS ORDERED: Aspirin 325 MG TABLET PO ONE (11:07)
[2021-08-05 11:15] LABS: BUN/Creatinine Ratio 17 (6-26); Blood Urea Nitrogen 14 mg/dL (6-20); Calcium 8.9 mg/dL (8.6-10.3); Carbon Dioxide 24 mEq/L (23-29); Chloride 105 mEq/L (98-107); Ethanol < 10 mg/dL (Less than 10); Glucose 74 mg/dL (70-105); Osmolality,Calculated 281 (280-300); Potassium 3.9 mEq/L (3.5-5.1); Sodium 136 mEq/L (136-145); Troponin I < 0.03 ng/mL (< 0.04); eGFR For African Americans > 60 (> 60); eGFR For Non-African Americans > 60 (> 60)
[2021-08-05] MEDS ORDERED: Ondansetron 4 MG/2 ML VIAL IVP PRN ×2 (12:20→16:35)
[2021-08-05] MEDS ORDERED: Naloxone 0.4 MG/ML INJ IVP PRN (12:20)
[2021-08-05] MEDS ORDERED: Perflutren Lipid Microsphere 1.3 ML in 0.9 % Sodium Chloride 8.7 ML IVP PRN (12:24)
[2021-08-05 12:30] LABS: Bacteria,Urine Few per hpf (None-Few); Bilirubin,Urine Negative (Negative); Blood,Urine Negative (Negative); Clarity,Urine Clear (Clear); Color,Urine Colorless (Yellow); Glucose,Urine (UA) Normal (Normal); Ketones,Urine Negative (Negative); Leukocyte Esterase,Urine Trace (Negative); Mucus,Urine Few per lpf (None-Few); Nitrite,Urine Positive (Negative); PH,Urine 6.5 pH Units (5.0-8.0); Protein,Urine Negative (Neg-Trace); RBC,Urine 0-3 per hpf (0-3); Specific Gravity,Urine > 1.030 (1.010-1.025); Squamous Epithelial Cell,Urine Few per hpf (None-Few); Urobilinogen,Urine Normal (Normal); WBC,Urine 0-3 per hpf (0-3)
[2021-08-05 12:45] LABS: Amphetamine Screen,Urine Negative ng/mL (Cutoff=1000); Barbiturate Screen,Urine Negative ng/mL (Cutoff=200); Benzodiazepines Screen,Urine Positive ng/mL (Cutoff=200); Cannabinoid Screen,Urine Negative ng/mL (Cutoff = 50); Cocaine Screen,Urine Negative ng/mL (Cutoff= 300); Opiate Screen,Urine Negative ng/mL (Cutoff=300); Phencyclidine Screen,Urine Negative ng/mL (Cutoff=25)
[2021-08-05] MEDS ORDERED: Cyanocobalamin (B-12) 1,000 MCG/ML VIAL SQ ONE (14:26)
[2021-08-05] MEDS: *HR* Heparin 5,000 UNIT/ML VIAL SQ SCH (15:54)
[2021-08-05] MEDS: Acetaminophen 325 MG TABLET PO PRN ×2 (16:01→22:12)
[2021-08-05] MEDS ORDERED: MethylPREDNISolone 40 MG/ML VIAL IVP ONE (16:32)
[2021-08-05] MEDS ORDERED: Metoclopramide 10 MG/2 ML VIAL IVP ONE (16:33)
[2021-08-05] MEDS ORDERED: Valproic Acid INJ 1,000 MG in 0.9 % Sodium Chloride 100 ML IVPB ONE (16:34)
[2021-08-05] MEDS ORDERED: diazePAM 5 MG TABLET PO ONE (16:35)
[2021-08-06] MEDS: *HR* Heparin 5,000 UNIT/ML VIAL SQ SCH (05:38)
[2021-08-06 06:30] LABS: Basophils % 0.1 %; Hematocrit 35.6 % (35.3-44.9); Hemoglobin 11.5 g/dL (11.5-15.4); Immature Granulocytes % 0.4 % (0-4); Lymphocytes # 0.7 K/mcL (0.6-4.6); Mean Corpuscular HGB Conc 32.3 g/dL (31.6-35.5); Mean Corpuscular Hemoglobin 29.9 pg (28.0-33.3); Mean Corpuscular Volume 92.7 fL (83.0-100.0); Mean Platelet Volume 11.3 fL (9.4-12.4); Monocytes # 0.2 K/mcL (0.0-1.3); Monocytes % 2.1 %; Neutrophils # 7.1 K/mcL (1.6-8.9); Platelet Count 258 K/mcL (140-400); Red Blood Count 3.84 M/mcL (3.82-4.97); Red Cell Distribution Width 13.1 % (11.5-14.5); Segmented Neutrophils % 88.4 %; White Blood Count 8.1 K/mcL (4.3-11.1)
[2021-08-06 08:11] VITALS: BP 126/82; PULSE 84; TEMP 97.6; O2SAT 93
[2021-08-06 08:46] LABS: Alanine Aminotransferase 21 Units/L (7-52); Albumin 4.2 g/dL (3.5-5.7); Albumin/Globulin Ratio 1.9 (1.1-2.2); Alkaline Phosphatase 71 Units/L (34-104); Aspartate Amino Transferase 17 Units/L (13-39); BUN/Creatinine Ratio 13 (6-26); Bilirubin,Total 0.3 mg/dL (0.3-1.0); Blood Urea Nitrogen 14 mg/dL (6-20); Calcium 9.4 mg/dL (8.6-10.3); Carbon Dioxide 18 mEq/L (23-29); Chloride 105 mEq/L (98-107); Chol/HDL Ratio 4.4 (0-4.9); Cholesterol 249 mg/dL (< 200); Globulin 2.2 g/dL (2.4-3.5); Glucose 167 mg/dL (70-105); HDL Cholesterol 57 mg/dL (40-59); LDL Cholesterol,Calculated 151 mg/dL (< 100); Osmolality,Calculated 286 (280-300); Potassium 4.1 mEq/L (3.5-5.1); Sodium 136 mEq/L (136-145); Total Protein 6.4 g/dL (6.4-8.9); Triglycerides 204 mg/dL (< 150); eGFR For African Americans > 60 (> 60); eGFR For Non-African Americans 56 (> 60)
[2021-08-06] MEDS ORDERED: Aspirin 81 MG TAB.CHEW PO SCH (09:00)
[2021-08-06 09:02] LABS: Troponin I < 0.03 ng/mL (< 0.04)
[2021-08-06 10:00] LABS: Estimated Average Glucose 88 mg/dl; Hemoglobin A1C 4.7 %
== END 2021-08-06 11:10 | disposition home or self-care (01) ==
LOC: EMEROOARM 09:23 → 3BNU 09:23
PROVIDERS: ADMIT Student in an Organized Health Care Education/Training Program; ATTEND Student in an Organized Health Care Education/Training Program